=== PATIENT | male | born 2000 | race Hispanic/Latino ===

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

== ENCOUNTER 2020-11-02 10:00 | Emergency (ER) | payer OTHER ==
[~2020-11-02] VITALS: Ht 190.5 cm; Wt 111.1 kg
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
== END 2020-11-02 12:36 | disposition home or self-care (01) ==
LOC: ED 10:00
DX: S61.112A Laceration without foreign body of left thumb with damage to nail, initial encounter (principal); W22.8XXA Striking against or struck by other objects, initial encounter
CPT/HCPCS: 73140; 90471; 90715; 99283-25

== ENCOUNTER 2022-11-07 22:13 | Emergency (ER) | payer OTHER ==
[~2022-11-07] VITALS: Ht 190.5 cm; Wt 111.1 kg
== END 2022-11-08 00:56 | disposition home or self-care (01) ==
LOC: ED 22:13
DX: S40.011A Contusion of right shoulder, initial encounter (principal); S00.83XA Contusion of other part of head, initial encounter; S30.0XXA Contusion of lower back and pelvis, initial encounter; V47.5XXA Car driver injured in collision with fixed or stationary object in traffic accident, initial encounter; Z79.899 Other long term (current) drug therapy
CPT/HCPCS: 36415; 70450; 70486; 71260; 72125; 73030; 74177; 80053; 83690; 85025; 99284-25; G0480; J2270; J7121; Q9967